=== PATIENT | male | born 1995 | race Two or more races ===

== ENCOUNTER 2022-04-22 05:59 | Emergency (ER) | payer OTHER ==
[~2022-04-22] VITALS: Ht 167.6 cm; Wt 80.7 kg
[2022-04-22] MEDS ORDERED: CIPRO500 MG PO (11:11)
== END 2022-04-22 11:19 | disposition home or self-care (01) ==
LOC: ER 05:59
DX: R30.0 Dysuria (principal)

== ENCOUNTER 2022-08-31 18:05 | Emergency (ER) | payer OTHER ==
[~2022-08-31] VITALS: Ht 177.8 cm; Wt 81.6 kg
[~2022-08-31 18:05] MED LIST: CIPRO500 MG PO
== END 2022-08-31 20:31 | disposition home or self-care (01) ==
LOC: ER 18:05
DX: B34.9 Viral infection, unspecified (principal); R53.81 Other malaise; Z20.822 Contact with and (suspected) exposure to COVID-19